=== PATIENT | male | born 1975 | race Caucasian/White ===

== ENCOUNTER 2018-05-15 04:21 | Emergency (ER) | payer SELFPAY ==
[~2018-05-15] VITALS: Ht 162.6 cm; Wt 73.0 kg
[2018-05-15] MEDS ORDERED: IBUPROFEN 600MG TABLET PO ONE (08:45)
[2018-05-15 09:21] VITALS: BP 152/93
== END 2018-05-15 09:23 | disposition home or self-care (01) ==
LOC: ER 04:21
DX: R07.89 Other chest pain (principal); R06.02 Shortness of breath; E11.9 Type 2 diabetes mellitus without complications; V89.2XXA Person injured in unspecified motor-vehicle accident, traffic, initial encounter; Y93.89 Activity, other specified; Y92.89 Other specified places as the place of occurrence of the external cause; Y99.8 Other external cause status
CPT/HCPCS: 71045; 93005; 99284; Z7610